=== PATIENT | male | born 1965 | race African-American/Black ===

== ENCOUNTER 2018-03-27 13:31 | Inpatient (IN) | payer OTHER ==
[2018-03-27 15:08] VITALS: BMI 51.2
[2018-03-27] MEDS ORDERED: PATIENT'S OWN MEDICATION (NON-FORMULARY) (Insulin Regular, Human [Humulin R U-500 Kwikpen] SQ SCH (16:30)
--- NOTE | 2018-03-27 16:49 | HP ---
COWS - Scale Resting Pulse: 2= OK 101-120 Sweatin= No chills or Flushing Restless Observation: 1= Difficult to Sit Still Pupil Size: 1= Pupils >than Normal Bone or Joint Aches: 4=Acute Joint/Muscle Pain Runny Nose/ Eye Tearin= Nasal Congestion GI Upset > 30mins: 2= Nausea/Diarrhea Tremor Observation: 0= None Yawning Observation: 1= 1-2x During Session Anxiety or Irritability: 0= None Goose Flesh Skin: 0=Smooth Skin COWS Score: 12 CIWA Score - Admission Criteria [facility]ASAS Guidelines: Admission for Medically Managed Detox: Requires at least one of the followin. CIWA greater than 12 2. Seizures within the past 24 hours 3. Delirium tremens within the past 24 hours 4. Hallucinations within the past 24 hours 5. Acute intervention needed for co occurring medical disorder 6. Acute intervention needed for co occurring psychiatric disorder 7. Severe withdrawal that cannot be handled at a lower level of care (continued vomiting, continued diarrhea, abnormal vital signs) requiring intravenous medication and/or fluids 8. Admission ROS [facility] Allergies/Adverse Reactions: Allergies Allergy/AdvReac Type Severity Reaction Status Date / Time No Known Drug Allergies Allergy Verified 03/27/18 17:38 tuna oil Allergy Verified 03/27/18 17:38 hot dogs Allergy Uncoded 03/27/18 17:38 History of Present Illness: patient here requesting detox from heroin use , reports 1-2 bundles/day denies IVDU , first age of use 15 , latest use 5 a.m. current symptoms as above . utox + fentanyl , opi, mtd admits to [facility] 3-4 mo ago for 18 months highest dose 180 mg , tapered to 30 mg did not want to continue , continued heroin use while in program [facility] illicit purchase of street methadone since, latest 2-3 days ago thinks 50 mg . reports illicit Percocet use , latest use 1 week ago . cannabis : occasional for pain . PMHx : mini LE edema x 1 month went to [facility] , per pt told no DVT , then went to [facility] had Doppler - no DVT , HTN , DM dx 2013 on insulin , DM neuropathy PSHx : left knee meniscal tear 2015 PSych : denies tobacco : 6 cigs/ day , on Chantix in the past. Meds : see list SHx: lives w/ , aware of pt's use and presence in tx . 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 Exam Limitations: No Limitations - Ebola screening Have you traveled outside of the country in the last 21 days: No Have you had contact with anyone from an Ebola affected area: No Have you been sick,other than usual withdrawal symptoms: No Do you have a fever: No - Review of Systems Constitutional: See HPI EENT: reports: Nose Congestion, Sinus Pressure, Other (reading glasses, reports myopia , denies dysphagia) Respiratory: reports: Orthopnea Cardiac: reports: No Symptoms Reported, See HPI GI: reports: Nausea : reports: Urgency, Other (reports prostate issues urgency , hesitancy , saw urologist in [facility] , given meds no longer taking, latest seen 5 mo ago .) Musculoskeletal: reports: Back Pain (LBP , reports " cracked vertebrae " from work , using cane for stability / balance , reports difficulty walking long distance .), Joint Pain (left knee ,) Integumentary: reports: Erythema, Other (R LE small ulceration x 1 month ago with LE swelling was not given meds at hospital) Neuro: reports: No Symptoms reported Endocrine: reports: See HPI Psychiatric: reports: Orientated x3, Anxious Patient History - Smoking Cessation Smoking history: Current every day smoker Have you smoked in the past 12 months: Yes Hx Chewing Tobacco Use: No Initiated information on smoking cessation: No - Substances Abused Heroin Route: Inhalation Frequency: Daily Amount used: 15 BAGS Age of first use: 15 Date of Last Use: 03/27/18 PERCOCETS Route: Oral Frequency: Daily Amount used: 5 (325) Age of first use: 52 Date of Last Use: 03/20/18 Family Disease History - Family Disease History Family Disease History: Diabetes: Father (DM , prostate CA ), Heart Disease: Mother (heart dz, + PPM , PE ), CA: Father, Other: Father, Mother, Sister Admission Physical Exam BHS - Vital Signs Vital Signs: Vital Signs - 24 hr 03/27/18 15:06 Temperature 98.6 F Pulse Rate 105 H Respiratory 18 Rate Blood Pressure 162/100 - Physical General Appearance: Yes: Mild Distress, Anxious HEENTM: Yes: EOMI, Hearing grossly Normal, Normocephalic, Normal Voice Respiratory: Yes: Chest Non-Tender, Lungs Clear, Decreased Breath Sounds, No Respiratory Distress, No Accessory Muscle Use Neck: Yes: No masses,lesions,Nodules, Trachea in good position Breast: Yes: Breast Exam Deferred Cardiology: Yes: Regular Rhythm, Regular Rate, S1, S2, Tachycardia Abdominal: Yes: Protuberent, Other (morbidly obese) Genitourinary: Yes: Hesitency, Uregency Back: Yes: Muscle Spasm, Vertebral Tenderness Musculoskeletal: Yes: Back pain, Joint Stiffness Extremities: Yes: Normal Capillary Refill, Non-Tender Neurological: Yes: Fully Oriented, Alert, Motor Strength 5/5, Numbness Integumentary: Yes: Pitting Edema, Other (right UE biceps glucose monitoring device .) - Diagnostic (1) Opiate dependence Current Visit: Yes Status: Acute Qualifiers: Substance use status: in withdrawal Qualified Code(s): F11.23 - Opioid dependence with withdrawal (2) Nicotine dependence Current Visit: Yes Status: Acute (3) Diabetes mellitus Current Visit: Yes Status: Chronic Qualifiers: 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
[2018-03-27] MEDS ORDERED: MAG HYDROX/AL HYDROX/SIMETH 30 ML UNIT-DOSE CUP PO PRN (17:05)
[2018-03-27] MEDS ORDERED: MAGNESIUM CITRATE 300 ML BOTTLE PO PRN (17:05)
[2018-03-27] MEDS ORDERED: ACETAMINOPHEN 325 MG TABLET (FP) PO PRN (17:05)
[2018-03-27] MEDS ORDERED: P-EPHED 60MG/TRIPROLIDI 2.5MG TABLET PO PRN (17:05)
[2018-03-27] MEDS ORDERED: MAGNESIUM HYDROX 2400MG/30ML ORAL SUSPENSION 30 ML CUP PO PRN (17:05)
[2018-03-27] MEDS ORDERED: MENTHOL/PHENOL 1 EACH UD MM PRN (17:05)
[2018-03-27] MEDS ORDERED: guaiFENesin/D-METHORPHAN HB 10 ML UNIT-DOSE CUPS PO PRN (17:05)
[2018-03-27] MEDS ORDERED: IBUPROFEN 400 MG TABLET (FP) PO PRN (17:05)
[2018-03-27] MEDS ORDERED: NICOTINE POLACRILEX 2 MG GUM BC PRN (17:05)
[2018-03-27] MEDS ORDERED: LOSARTAN POTASSIUM 50 MG TABLET (FP) PO SCH (18:00)
[2018-03-27] MEDS ORDERED: ALBUTEROL SO4 0.083% IH SOL 2.5 MG/3 ML VIAL.NEB. NEB PRN (19:26)
[2018-03-27] MEDS ORDERED: AMMONIUM LACTATE 12% LOTION 225 GM BOTTLE TP PRN (19:26)
[2018-03-27 20:56] VITALS: BP 149/79; PULSE 108; TEMP 96.5
[2018-03-27] MEDS ORDERED: THIAMINE HCL 100 MG TABLET (FP) PO SCH (22:00)
[2018-03-27] MEDS ORDERED: ATORVASTATIN CA 20 MG TABLET (FP) PO SCH (22:00)
[2018-03-27] MEDS ORDERED: GABAPENTIN 300 MG CAPSULE (FP) PO SCH (22:00)
[2018-03-27] MEDS ORDERED: INSULIN SLIDING SCALE (NOVOLOG) 1 VIAL SQ SCH (22:00)
[2018-03-27] MEDS ORDERED: MELATONIN 5 MG TABLETS PO PRN (22:00)
[2018-03-27] MEDS ORDERED: METHADONE HCL 10 MG TABLET (FOR DETOX USE ONLY) PO ONE (23:00)
[2018-03-27] MEDS ORDERED: hydrOXYzine PAMOATE 50 MG CAPSULE (FP) PO PRN (23:01)
--- NOTE | 2018-03-27 23:07 | PN ---
S Progress Note (SOAP) Subjective: c/o abdominal pain, nausea, and cramping. Denies vomiting or diarrhea. Objective: A&O. Obese abdomen soft to touch. Increased bowel sounds. C/o tenderness at mid- epigastric area upon deep palpation. No guarding. No rebound tenderness. Vital Signs 03/27/18 03/27/18 15:06 20:54 Temperature 98.6 F 96.5 F L Pulse Rate 105 H 108 H Respiratory 18 20 Rate Blood Pressure 162/100 149/79 Assessment: Withdrawal symptoms. Plan: Vistaril 50 mg Protonix 20 mg Continue detox.
[2018-03-27] MEDS ORDERED: PANTOPRAZOLE 20 MG TABLET (FP) PO ONE (23:15)
--- NOTE | 2018-03-28 01:24 | DS ---
[facility] Detox Discharge Summary Admission Date: 03/27/18 Discharge Date: 03/28/18 - History Additional Comments: Patient is leaving against medical advice. He reports that the methadone detox regime is too minimal to help him. Patient was offered additional 10mg of methadone but he states that he already called [employer] to pick him up. Risks and consequences of his action reinforced. Patient is alert and oriented to person, place and time and he is in no acute distress. He is medically stable at this time to go home. He did complain of abdominal pain earlier today but reports that he feels a lot better after he was medicated. 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 Pertinent Past History: Opioid dependence, Nicotine dependence, DM, HTN - Physical Exam Results Vital Signs: Vital Signs Temperature 96.5 F L 03/27/18 20:54 Pulse Rate 108 H 03/27/18 20:54 Respiratory Rate 20 03/27/18 20:54 Blood Pressure 149/79 03/27/18 20:54 O2 Sat by Pulse Oximetry (%) Laboratory Last Values POC Glucometer 198 UNITS (80-120) 03/28/18 00:40 Pertinent Admission Physical Exam Findings: Withdrawal symptoms - Medication Discharge Medications: Ambulatory Orders Atorvastatin Ca [Lipitor] 20 mg PO HS 03/27/18 Ertugliflozin Pidolate [Steglatro] 5 mg PO DAILY 03/27/18 Gabapentin [Neurontin -] 600 mg PO TID 03/27/18 Insulin Regular, Human [Humulin R U-500 Kwikpen] 500 unit SQ DAILY 03/27/18 Liraglutide [Victoza -] 0.6 mg SQ DAILY@0700 03/27/18 Losartan Potassium [Cozaar -] 50 mg PO DAILY 03/27/18 Metformin HCl [Metformin HCl ER] 500 mg PO BID 03/27/18 - Diagnosis (1) Nicotine dependence Status: Chronic Qualifiers: Nicotine product type: cigarettes Substance use status: uncomplicated Qualified Code(s): F17.210 - Nicotine dependence, cigarettes, uncomplicated (2) Opiate dependence Status: Acute Qualifiers: Substance use status: in withdrawal Qualified Code(s): F11.23 - Opioid dependence with withdrawal (3) Diabetes mellitus Status: Chronic Qualifiers: Diabetes mellitus jail insulin use: with jail use Diabetes mellitus complication status: with unspecified complications (4) Hypertension Status: Chronic Qualifiers: Hypertension type: essential hypertension Qualified Code(s): I10 - Essential (primary) hypertension (5) Pedal edema Status: Chronic - AMA Did Patient Leave Against Medical Advice: Yes
[2018-03-28] MEDS ORDERED: LIRAGLUTIDE 0.6 MG/0.1 ML PEN.INJCTR SQ SCH ×2 (07:00)
[2018-03-28] MEDS ORDERED: METHADONE HCL 10 MG TABLET (FOR DETOX USE ONLY) PO ONE (10:00)
[2018-03-28] MEDS ORDERED: PRENATAL VITAMINS W/ FOLIC ACID TABLET (FP) PO SCH (10:00)
[2018-03-28] MEDS ORDERED: ERTUGLIFLOZIN PIDOLATE 5 MG PO SCH (10:00)
[2018-03-29] MEDS ORDERED: METHADONE HCL 5 MG TABLET (FOR DETOX USE ONLY) PO ONE (10:00)
--- NOTE | 2018-03-29 19:40 | EKG ---
Test Reason : Blood Pressure : / mmHG Vent. Rate : 100 BPM Atrial Rate : 100 BPM P-R Int : 134 ms QRS Dur : 102 ms QT Int : 364 ms P-R-T Axes : 070 055 023 degrees QTc Int : 469 ms NORMAL SINUS RHYTHM NORMAL ECG NO PREVIOUS ECGS AVAILABLE Confirmed by INDIA SEGUNDO MD ([id number]) on 03/29/2018 7:40:28 PM Referred By: Confirmed By:INDIA SEGUNDO MD
[2018-03-30] MEDS ORDERED: METHADONE HCL 10 MG TABLET (FOR DETOX USE ONLY) PO ONE (10:00)
[2018-03-31] MEDS ORDERED: METHADONE HCL 5 MG TABLET (FOR DETOX USE ONLY) PO ONE (06:00)
== END 2018-03-28 01:05 | disposition home or self-care (01) | DRG 773 ==
LOC: YASAS 13:31 → Y3N 18:57
PROVIDERS: ADMIT Neuromusculoskeletal Medicine & OMM; ATTEND Neuromusculoskeletal Medicine & OMM
PROC: HZ2ZZZZ Detoxification Services for Substance Abuse Treatment (ICD-10-PCS; principal; 2018-03-27)
DX: F11.23 Opioid dependence with withdrawal (principal); F17.210 Nicotine dependence, cigarettes, uncomplicated; I10 Essential (primary) hypertension; E11.9 Type 2 diabetes mellitus without complications; R60.9 Edema, unspecified; R00.0 Tachycardia, unspecified; Z79.4 Long term (current) use of insulin; Z79.84 Long term (current) use of oral hypoglycemic drugs
CPT/HCPCS: 82962; 93005; 93010